=== PATIENT | female | born 1985 | race Caucasian/White ===

== ENCOUNTER 2022-03-04 12:23 | Inpatient (IN) ==
[2022-03-04] MEDS ORDERED: DEXTROSE 50% 50 ML SYRINGE IV PRN (13:45)
[2022-03-04] MEDS ORDERED: OXYTOCIN 30 UNITS/500 ML BAG IV PRN ×2 (13:45)
[2022-03-04] MEDS ORDERED: INSULIN REGULAR 250 UNITS in SODIUM CHLORIDE 0.9% 247.5 ML IV PRN (13:45)
[2022-03-04] MEDS ORDERED: SODIUM CHLORIDE 0.9% 1000ML 1,000 ML IV PRN (13:45)
[2022-03-04] MEDS ORDERED: DEXTROSE 5% 1,000 ML IV PRN (13:45)
[2022-03-04] MEDS ORDERED: miSOPROStoL 50 MCG TAB PO ONE (14:17)
[2022-03-04 14:19] LABS: Hematocrit (blood only) 35.8 % (37-47); Hemoglobin 11.8 g/dL (12.0-16.0); Mean Corpuscular Hemoglobin 29.5 pg (25-34); Mean Corpuscular Volume 89.5 fL (80-100); Mean Platelet Volume 9.9 fL (7.4-10.4); Platelet Count 419 K/uL (130-400); RDW Coefficient of Variation 13.5 % (11.5-14.5); RDW Standard Deviation 44.9 fL (36.4-46.3); White Blood Count 10.81 K/uL (4.8-10.8)
--- NOTE | 2022-03-04 14:24 | Procedure Note ---
Procedure Note Date of Service March 04, 2022 Note monitoring was used to ensure reassuring status. The patient was verbally consented for placement of a santiago for cervical ripening, with discussion of risks, benefits and alternatives. All her questions were answered. Her legs were placed in lithotomy position. A lubricated, gloved hand was used to examine the cervix. A stylet was lubricated and inserted into a santiago catheter to give it stiffness, and the santiago catheter was then advanced along my fingers until it reached the external cervical os. Exam was closed, 80%, high. The santiago was then fed forward off of the stylet, aiming at the os and attempting to press through it. Unfortunately the os did not yield and the santiago bent away to the side. The santiago and stylet were removed from the vagina, re-set and re-lubricated, and a second attempt at placement was made. Unfortunately the exact same outcome occurred. My hand, the santiago and the stylet were removed from the vagina. There was no bleeding or leakage of fluid. The heart tones remained reassuring after this process, which the patient tolerated well. We discussed alternate methods of cervical ripening and agree on cytotec 50mcg orally, which I will order. Coding
--- NOTE | 2022-03-04 14:40 | History & Physical Report ---
Date of Service March 04, 2022 Assessment & Plan (1) Encounter for induction of labor: Plan: Lizzy is a 36 y/o at 39 weeks 1 day coming in for induction of labor. -Started patient on LR at 125ml/hr. -Attempted Santiago balloon however cervix remained closed, please see procedure note for more detail. -Ordered one time dose oral 50mcg Misoprostol for cervical ripening. -Anesthesia consulted for pain management. -Vitals WNL, continue to monitor vitals and FHR/toco. Admission and Anticipated Discharge Date Admission Date: March 04, 2022 History of Present Illness Chief Complaint: IoL Primary Care Provider: Brianna Ramirez PA-C 36 year old 39 weeks 1 day. Here for Induction of Labor. Patient attended OB appointments regularly. Patient taking medications: Celexa, cetirizine, vitamin. Contractions: Denies aside from few mady-bell throughout past few days. Fluid or blood: Denies Movement: Present. Allergies Allergy/AdvReac Type Severity Reaction Status Date / Time penicillin G Allergy Unknown RASH Verified 03/03/22 14:40 Sulfa (Sulfonamide Allergy Unknown MILD Verified 03/03/22 14:40 Antibiotics) SENSITIVITY Home Medications Medication Instructions Recorded Confirmed Type cetirizine 10 mg tablet (Zyrtec) 10 mg PO DAILY PRN 07/29/21 03/04/22 History citalopram 20 mg tablet (Celexa) 20 mg PO DAILY 07/29/21 03/04/22 History prenat.vits,gomez,xae-mehc-ludim 1 tab PO DAILY 07/29/21 03/04/22 History ondansetron HCl 4 mg tablet 4 mg PO Q6H PRN #30 tab 01/13/22 03/04/22 Rx Patient History Surgical History (Updated 07/29/21 @ 08:03 by Ewelina Galaviz) S/P wisdom tooth extraction Family History (Updated 07/29/21 @ 07:47 by Ewelina Galaviz) Mother Dysautonomia Hypertension Father Hypertension Sister Asthma Social History (Updated 07/29/21 @ 07:47 by Ewelina Galaviz) Smoking Status: Former smoker Hx Alcohol Use: No Hx Substance Use: No Preferred Language: Russian Communication Ability: Effective Cow Buyer Required: No Beliefs That Will Affect Care: None marital status: marital status details: Brayan (40) [phone] Current Living Situation: Spouse Current Living Situation Comment: lives with spouse current occupational status: unemployed Other Information That Helps Us Care for You: No Feels Safe at Home: Yes Safety Concerns: Feels Safe At This Time Assistive Devices: Glasses OB History Primigravid IVF . Review of Systems Denies fever, chills, sweats Denies shortness of breath, difficulty breathing, chest pain, palpitations, chest pressure. Denies breast pain. Denies dysuria. Denies headache or changes in vision Physical Exam Physical Exam: General: Pleasant affect. Alert, oriented. No acute distress. Cardiac: Regular rate and rhythm, no murmurs/rubs/gallops. Respiratory: Clear to auscultation bilaterally a/p, no wheezes/rales/rhonchi. No increased work of breathing. Symmetrical chest rise. No respiratory distress. Lower Extremities: No deep calf pain. Results & Data ([facility]) Vital Signs (Past 12 Hours) Vital Signs Temp Pulse Resp BP 03/04/22 13:48 85 128/81 03/04/22 13:29 37.0 C 18 Laboratory Results - Blood type O+ - Antibody screen: Negative - Hgb: 11.8 - Hct: 35.8 - Wbc: 10.81 - Plt: 419 - Rubella Immune - VDRL/RPR: Negative - Gonorrhea: Negative - Chlamydia: Negative - HIV: Negative - HbSAg: Immune - GBS: Negative - Glucose tolerance x 2: 105, 123 Monitoring External Monitor FHR: 150 Accels: Present Decels: Not present. Tocodynamometer Contractions not present. Supervising Physician Co-Signing Physician Notes Resident Physician Supervision Note: I interviewed and examined the patient. Discussed with Dr. Walton and agree with findings and plan as documented in the note. Any exceptions or clarifications are listed here: Patient admitted for IOL of IVF/ICSI c/b AMA, placental lakes. Delayed start of induction due to high census in L&D. On admission, attempted santiago but cervix unripe and would not permit passage of santiago balloon. Therefore, cytotec dosed orally and will reassess cervix in 4 hours. Hoping at that point she may be able to start pitocin, +/- need for santiago balloon depending on dilation. Documented By: Francia Vicente MD, FACOG Resident Activity Tracking Resident Involvement: Resident Care Provided Care Provided: OB Delivery
--- NOTE | 2022-03-04 19:38 | Labor Progress Brief Note ---
Date of Service March 04, 2022 Subjective Contractions Q2min that are uncomfortable but not very painful. Good FM, no LOF or VB. Assessment & Plan (1) Encounter for induction of labor: Plan: Santiago now placed for cervical ripening. [place] too active to add further augmentation; will allow observation until either santiago falls out or contraction pattern settles significantly. Could add pitocin or AROM after those occur. Epidural on request. Admission and Anticipated Discharge Date Admission Date: March 04, 2022 Physical Exam Genitourinary: Cervix unchanged but perhaps softer; might be able to place a santiago through if reattempted? FHT Cat 1 [place] Q2m After discussing limited options available given active toco, patient is interested in attempting santiago placement. Latex santiago lubricated, stylet inserted, and using a sterile gloved hand, santiago guided to cervix. The santiago was fed forward off the stylet and pressed against the cervical os, and this time it was able to pass through. Santiago advanced forward approximately 3 inches, stylet removed, and then 35cc sterile water placed into the balloon. Santiago seated downward against the internal os and secured at the leg with a standard wheeler. No VB or LOF, FHT remain cat 1. Results & Data ([facility]) Vital Signs (Past 12 Hours) Vital Signs Temp Pulse Resp BP 03/04/22 19:17 82 135/82 03/04/22 19:12 98.1 F 20 03/04/22 18:06 86 131/84 03/04/22 17:00 18 03/04/22 13:48 98.6 F 85 18 128/81 03/04/22 13:29 98.6 F 18 Coding Level of Care Code None Diagnoses Encounter for induction of labor Z34.90
[2022-03-05] MEDS: LACTATED RINGER'S 1,000 ML IV PRN ×4 (03:29→12:22)
[2022-03-05] MEDS ORDERED: ONDANSETRON INJ 2 MG/ML 2 ML VIAL IV ONE (05:07)
[2022-03-05] MEDS ORDERED: ONDANSETRON INJ 2 MG/ML 2 ML VIAL ONE (05:09)
--- NOTE | 2022-03-05 06:15 | Labor Progress Brief Note ---
Date of Service March 05, 2022 Subjective Tolerating ctx with breathing. Does not desire epidural yet; wanting to try to go without if possible. Agreeable to AROM. Assessment & Plan (1) Encounter for induction of labor: Plan: Pit, AROM, can have epidural on request. Continue current mgmt. Admission and Anticipated Discharge Date Admission Date: March 04, 2022 Physical Exam Genitourinary: /50/-2 FHT Cat 1 [place] Q2m Pit @ 5 AROM copious clear Results & Data ([facility]) Vital Signs (Past 12 Hours) Vital Signs Temp Pulse Resp BP 03/05/22 06:08 98.2 F 03/05/22 05:38 77 117/77 03/05/22 05:30 20 03/05/22 05:11 20 03/05/22 04:39 73 117/76 03/05/22 04:00 20 03/05/22 03:30 20 03/05/22 03:11 71 105/58 L 03/05/22 03:10 98.1 F 03/04/22 22:42 75 112/71 03/04/22 22:40 98.4 F 03/04/22 22:25 20 03/04/22 20:33 20 03/04/22 19:17 82 135/82 03/04/22 19:12 98.1 F 20 Coding Level of Care Code None Diagnoses Encounter for induction of labor Z34.90
[2022-03-05] MEDS ORDERED: fentaNYL citrate 100 MCG/2 ML VIAL ONE (06:50)
[2022-03-05] MEDS ORDERED: BUPIVACAINE 0.25% 30 ML VIAL ONE ×2 (06:50→10:53)
[2022-03-05] MEDS ORDERED: SODIUM CHLORIDE 0.9% INJ 10 ML VIAL ONE ×2 (06:50→10:53)
[2022-03-05] MEDS ORDERED: ePHEDrine sulfate 50 MG/ML AMP ONE (06:50)
[2022-03-05] MEDS ORDERED: fentaNYL 2MCG/ML ROPIVACAINE 1.25MG/ML 100 ML BAG EPI ONE (06:51)
[2022-03-05] MEDS ORDERED: ONDANSETRON INJ 2 MG/ML 2 ML VIAL IV PRN (07:23)
[2022-03-05] MEDS ORDERED: diphenhydrAMINE 50 MG/ML VIAL IV PRN (07:23)
[2022-03-05] MEDS ORDERED: ePHEDrine sulfate 50 MG/ML AMP IV PRN (07:23)
[2022-03-05] MEDS ORDERED: NALBUPHINE HCL INJ 10 MG/ML AMP IV PRN (07:23)
[2022-03-05] MEDS ORDERED: NALOXONE HCL 0.4 MG/1 ML VIAL/CARP IV PRN (07:23)
[2022-03-05] MEDS ORDERED: NALOXONE HCL 1 MG in SODIUM CHLORIDE 0.9% 1000ML 1,000 ML IV PRN (07:23)
[2022-03-05] MEDS ORDERED: fentaNYL 2MCG/ML ROPIVACAINE 1.25MG/ML 100 ML BAG EPI PRN (07:23)
--- NOTE | 2022-03-05 07:26 | Anesthesiology Consultation ---
Date of Service March 05, 2022 Assessment & Plan Chart Review Chart Review: Patient NOT seen in Pre Admission Testing and Acceptable Risk for Labor Epidural Consults Requested none ASA ASA2 Proposed Anesthesia Anesthesia Type: Labor Epidural and CSE Risk / Benefits Reviewed With: PT / POA / Parent / Guardian, Accepts Plan and Informed Consent Obtained History Height/Weight Height: 5 ft 3 in Weight: 93.44 kg Allergies Allergy/AdvReac Type Severity Reaction Status Date / Time penicillin G Allergy Unknown RASH Verified 03/03/22 14:40 Sulfa (Sulfonamide Allergy Unknown MILD Verified 03/03/22 14:40 Antibiotics) SENSITIVITY Medications Home Medications Medication Instructions Recorded Confirmed Last Taken cetirizine 10 mg tablet (Zyrtec) 10 mg PO DAILY PRN 07/29/21 03/04/22 03/04/22 citalopram 20 mg tablet (Celexa) 20 mg PO DAILY 07/29/21 03/04/22 03/04/22 prenat.vits,gomez,vji-scem-hoaqy 1 tab PO DAILY 07/29/21 03/04/22 03/04/22 ondansetron HCl 4 mg tablet 4 mg PO Q6H PRN #30 tab 01/13/22 03/04/22 03/04/22 Active Medications Generic Name Dose Route Start Last Admin Trade Name Freq PRN Reason Stop Dose Admin Oxytocin 30 units in 500 mls @ 7 mls/hr 03/04/22 13:45 03/05/22 06:31 Pitocin IV 03/06/22 13:44 0.42 units/hr .Q24H PRN 7 mls/hr Labor Induction/Augmentation Titration Protocol 0.42 UNITS/HR Lactated Ringer's 1,000 mls @ 125 mls/hr 03/04/22 13:45 03/05/22 07:24 Lr IV 03/06/22 13:44 999 mls/hr .Q8H PRN Administration L&D Protocol Protocol NPO Date Last Intake of Fluids: 03/05/22 Time Last Intake of Fluids: 06:00 Date Last Intake of Solids: 03/04/22 Time Last Intake of Solids: 19:00 Exercise / Class Metabolic Activity II 4-5 Yardwork/Stairs/Walk up hill Past Family History Family History Mother Dysautonomia Hypertension Father Hypertension Sister Asthma Past Surgical History Surgical History S/P wisdom tooth extraction Past Anesthesia History No Hx of Anesthesia Complications and No Family Hx of Anesthesia Complications History of PONV No Hx of PONV and No Hx of Motion Sickness Social History Smoking Status: Former smoker Hx Alcohol Use: No Hx Substance Use: No Review of Systems no chest pain or sob Physical Exam Vital Signs Last Vital Signs Temp 36.8 C 03/05/22 07:17 Pulse 90 03/05/22 07:22 Resp 20 03/05/22 07:17 BP 123/80 03/05/22 07:19 Pulse Ox 100 03/05/22 07:22 Constitutional + obese ENMT Mouth: no TMJ abnormality Thyromental Distance: > or= 3.5 Finger Breadths Mallampati Class: II Neck normal visual inspection Respiratory normal respiratory effort Auscultation: lungs clear to auscultation bilaterally Cardiovascular Rate/Rhythm: regular rate and regular rhythm Musculoskeletal Spine: normal cervical ROM Neurologic moves all extremities Psychiatric Orientation: alert and oriented x 3 Testing Laboratory Results 03/04/22 14:02
[2022-03-05] MEDS ORDERED: CALCIUM CARBONATE 500 MG CHEWABLE TAB PO PRN (09:40)
[2022-03-05] MEDS ORDERED: Nursing to Pharmacy Communication SCH (10:15)
--- NOTE | 2022-03-05 10:56 | Labor Progress Brief Note ---
Date of Service March 05, 2022 Subjective painful, awaiting rebolus by anesthesia Assessment & Plan (1) Encounter for induction of labor: (2) resulting from in vitro fertilization, antepartum: (3) Supervision of elderly primigravida: Plan: making progress with cx change. fhts categ 1. early decels. anesth here to try to improve her pain mgmt. Admission and Anticipated Discharge Date Admission Date: March 04, 2022 Physical Exam Constitutional: WD/WN, vitals as above Genitourinary: Manual OB Exam: + cervical dilation (7cm per nurse) OB Exam Monitor Tracing: + external FHT monitor used, + external uterine monitor used (q3), + category I, + normal FHT variability and + early decelerations present Results & Data ([facility]) Vital Signs (Past 12 Hours) Vital Signs Temp Pulse Resp BP Pulse Ox 03/05/22 10:53 86 91 03/05/22 10:52 86 98 03/05/22 10:47 87 96 03/05/22 10:42 93 H 97 03/05/22 10:37 100 H 97 03/05/22 10:32 85 95 03/05/22 10:28 90 117/82 93 03/05/22 10:27 86 98 03/05/22 10:22 88 97 03/05/22 10:19 83 93 03/05/22 10:17 102 H 96 03/05/22 10:13 86 113/72 03/05/22 10:12 85 98 03/05/22 10:10 86 93 03/05/22 10:07 83 95 03/05/22 10:02 85 96 03/05/22 09:58 89 112/67 03/05/22 09:57 81 96 03/05/22 09:52 83 98 03/05/22 09:47 89 98 03/05/22 09:44 75 110/65 03/05/22 09:42 83 97 03/05/22 09:37 77 98 03/05/22 09:32 83 97 03/05/22 09:28 75 107/61 03/05/22 09:27 74 98 03/05/22 09:22 73 98 03/05/22 09:17 74 98 03/05/22 09:13 72 114/67 03/05/22 09:12 78 97 03/05/22 09:07 78 98 03/05/22 09:02 80 97 03/05/22 08:59 98.2 F 75 20 121/70 03/05/22 08:57 75 98 03/05/22 08:52 76 98 03/05/22 08:47 70 98 03/05/22 08:44 86 107/65 03/05/22 08:42 82 98 03/05/22 08:37 93 H 99 03/05/22 08:32 84 97 03/05/22 08:28 77 114/72 03/05/22 08:27 84 99 03/05/22 08:22 78 100 03/05/22 08:17 85 97 03/05/22 08:14 78 16 116/71 03/05/22 08:12 86 97 03/05/22 08:07 87 97 03/05/22 08:02 95 H 98 03/05/22 07:58 88 16 112/66 03/05/22 07:57 89 97 03/05/22 07:55 100 H 104/60 03/05/22 07:53 89 20 110/65 03/05/22 07:52 99 H 98 03/05/22 07:51 91 H 104/60 03/05/22 07:50 90 20 108/60 03/05/22 07:47 84 118/70 98 03/05/22 07:42 82 97 03/05/22 07:41 81 118/80 03/05/22 07:37 90 98 03/05/22 07:34 86 127/86 03/05/22 07:32 86 99 03/05/22 07:27 82 98 03/05/22 07:22 90 100 03/05/22 07:19 75 123/80 03/05/22 07:17 98.2 F 82 20 100 03/05/22 07:12 75 99 03/05/22 07:00 24 03/05/22 06:37 74 134/84 03/05/22 06:30 20 03/05/22 06:08 98.4 F 20 03/05/22 06:00 20 03/05/22 05:38 77 117/77 05 05:30 20 03/05/22 05:11 20 03/05/22 04:39 73 117/76 05 04:00 20 05/13/22 03:30 20 03/05/22 03:11 71 105/58 L 03/05/22 03:10 98.1 F 20 Coding Level of Care Code None Diagnoses Encounter for induction of labor Z34.90 resulting from in vitro fertilization, antepartum O09.819 Supervision of elderly primigravida O09.519
--- NOTE | 2022-03-05 11:16 | Labor Progress Brief Note ---
Date of Service March 05, 2022 Subjective more painful, rectal pressure and cx pain Assessment & Plan (1) Encounter for induction of labor: (2) resulting from in vitro fertilization, antepartum: (3) Supervision of elderly primigravida: Plan: anticip 2nd stage soon. anesth may opt with pt to use more pain meds. pt aware could be more time until ready to push. fhts categ 1, early decels. 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 Admission and Anticipated Discharge Date Admission Date: March 04, 2022 Physical Exam Constitutional: WD/WN, vitals as above Genitourinary: Manual OB Exam: + cervical dilation (rim), + cervical effacement 100% and + station + 1 OB Exam Monitor Tracing: + external FHT monitor used, + external uterine monitor used (q2), + category I, + normal FHT variability and + early decelerations present Results & Data ([facility]) Vital Signs (Past 12 Hours) Vital Signs Temp Pulse Resp BP Pulse Ox 03/05/22 11:07 83 100 03/05/22 11:02 110 H 99 03/05/22 11:00 133 H 114/83 03/05/22 10:57 106 H 96 03/05/22 10:53 86 91 03/05/22 10:52 86 98 03/05/22 10:47 87 96 03/05/22 10:42 93 H 97 03/05/22 10:37 100 H 97 03/05/22 10:32 85 95 03/05/22 10:28 90 117/82 93 03/05/22 10:27 86 98 03/05/22 10:22 88 97 03/05/22 10:19 83 93 03/05/22 10:17 102 H 96 03/05/22 10:13 86 113/72 03/05/22 10:12 85 98 03/05/22 10:10 86 93 03/05/22 10:07 83 95 03/05/22 10:02 85 96 03/05/22 09:58 89 112/67 03/05/22 09:57 81 96 03/05/22 09:52 83 98 03/05/22 09:47 89 98 03/05/22 09:44 75 110/65 03/05/22 09:42 83 97 03/05/22 09:37 77 98 03/05/22 09:32 83 97 03/05/22 09:28 75 107/61 03/05/22 09:27 74 98 03/05/22 09:22 73 98 03/05/22 09:17 74 98 03/05/22 09:13 72 114/67 03/05/22 09:12 78 97 03/05/22 09:07 78 98 03/05/22 09:02 80 97 03/05/22 08:59 98.2 F 75 20 121/70 05 08:57 75 98 03/05/22 08:52 76 98 03/05/22 08:47 70 98 03/05/22 08:44 86 107/65 03/05/22 08:42 82 98 03/05/22 08:37 93 H 99 03/05/22 08:32 84 97 03/05/22 08:28 77 114/72 03/05/22 08:27 84 99 03/05/22 08:22 78 100 03/05/22 08:17 85 97 03/05/22 08:14 78 16 116/71 03/05/22 08:12 86 97 03/05/22 08:07 87 97 03/05/22 08:02 95 H 98 03/05/22 07:58 88 16 112/66 03/05/22 07:57 89 97 03/05/22 07:55 100 H 104/60 03/05/22 07:53 89 20 110/65 03/05/22 07:52 99 H 98 03/05/22 07:51 91 H 104/60 03/05/22 07:50 90 20 108/60 03/05/22 07:47 84 118/70 98 03/05/22 07:42 82 97 03/05/22 07:41 81 118/80 05 07:37 90 98 05 07:34 86 127/86 03/05/22 07:32 86 99 03/05/22 07:27 82 98 03/05/22 07:22 90 100 03/05/22 07:19 75 123/80 03/05/22 07:17 98.2 F 82 20 100 03/05/22 07:12 75 99 03/05/22 07:00 24 03/05/22 06:37 74 134/84 05/13/22 06:30 20 03/05/22 06:08 98.4 F 20 03/05/22 06:00 20 03/05/22 05:38 77 117/77 03/05/22 05:30 20 03/05/22 05:11 20 03/05/22 04:39 73 117/76 03/05/22 04:00 20 03/05/22 03:30 20 03/05/22 03:11 71 105/58 L 03/05/22 03:10 98.1 F 20 Coding Level of Care Code None Diagnoses Encounter for induction of labor Z34.90 resulting from in vitro fertilization, antepartum O09.819 Supervision of elderly primigravida O09.519
--- NOTE | 2022-03-05 13:59 | Delivery Summary ---
Vaginal Delivery Summary Date of Service March 05, 2022 Vaginal Delivery Summary and 2nd Degree LAC PREOPERATIVE DIAGNOSIS: 1. Single intrauterine at 39 2/7 wga 2. IVF 3. Advanced maternal age 4. Marginal cord insertion 5. Placental saavedra POSTOPERATIVE DIAGNOSIS: 1. Single intrauterine at 39 2/7 wga 2. IVF 3. Advanced maternal age 4. Marginal cord insertion 5. Placental saavedra 6. Delivered PROCEDURE: 1. Normal spontaneous vaginal delivery. SURGEON: Lady Maciel MD ANESTHESIA: Epidural. ESTIMATED BLOOD LOSS: 300 mL FLUIDS: Continuous LR. URINE OUTPUT: None. COMPLICATIONS: None. CONDITION: Stable. INDICATIONS: 36 y/o G1 at 39 2/7 wga presented for IOL one day ago due to cord insertion and placental saavedra per [facility] recommendations. complicated by above. Induction started with cytotec and she then underwent santiago bulb placement once cervix ripened. Following santiago bulb expulsion, she was started on pitocin and underwent artificial rupture of membranes. She received an epidural and augmentation continued until she reached complete and desired to push. FINDINGS: A viable male infant, weight pending with Apgars of 7 and 8 at 1 and 5 minutes respectively. SPECIMEN: Cord blood, placenta OPERATIVE REPORT: The patient progressed to 10 cm, 100% effaced and +2 station, pushed over intact perineum with anesthesia to deliver a viable male infant, weight and Apgars as above. Head of delivered in direct OA position. No nuchal cord was present. Body and shoulders were delivered without difficulty. was delivered to maternal abdomen and nursing staff. Delayed cord clamping was performed for 60 seconds. Cord was clamped and cut. Cord blood was obtained. Placenta delivered spontaneously intact with 3-vessel cord. IV oxytocin and fundal massage were given for excellent hemostasis. Vagina, cervix, perineum, and placenta were inspected. A second degree laceration was noted and repaired in the usual fashion using 3-0 Vicryl. Sponge and needle counts correct x2. No sponges were left behind. Mother and stable in immediate period. [facility] Vaginal Delivery Charge Vaginal Delivery Codes: 96263 global code for the antepartum, delivery, and post- Delivery Type Details: and 2nd Degree LAC
[2022-03-05] MEDS ORDERED: OXYTOCIN 20 UNITS in LACTATED RINGER'S 1,000 ML IV SCH (14:07)
[2022-03-05] MEDS ORDERED: ACETAMINOPHEN 325 MG TAB PO PRN (14:07)
[2022-03-05] MEDS ORDERED: HYDROCORTISONE ACETATE 25 MG SUPP PR PRN (14:07)
[2022-03-05] MEDS ORDERED: DIPHTHERIA/TETANUS/PERTUSSIS 0.5 ML SYR/VIAL IM ONE (14:07)
[2022-03-05] MEDS ORDERED: oxyCODONE/ACETAMINOPHEN 5mg/325mg TAB PO PRN (14:07)
[2022-03-05] MEDS ORDERED: OXYTOCIN 30 UNITS/500 ML BAG IV PRN (14:07)
[2022-03-05] MEDS ORDERED: BENZOCAINE 20% AER SPR 82.5 GM CAN EXT PRN (14:07)
--- NOTE | 2022-03-05 14:43 | Anesthesia Procedure Note ---
Date of Service March 05, 2022 Anesthesia Post Epidural Note Vital Signs Vital Signs: Temp Pulse Resp BP Pulse Ox 36.8 C 97 H 20 129/72 98 03/05/22 14:28 03/05/22 14:28 03/05/22 14:28 03/05/22 14:28 03/05/22 13:42 Pain Intensity Abdomen: Pain Intensity: 0 Notes Mental Status: alert / awake / arousable and participated in evaluation Nausea / Vomiting: adequately controlled Pain: adequately controlled Airway Patency, RR, SpO2: stable & adequate BP & HR: stable & adequate Hydration State: stable & adequate Neuraxial Anesthesia: was administered and sensory block is resolving Anesthetic Complications: no major complications apparent and Pt Satisfied with anesthetic care Epidural: Removed without complications and With tip intact
[2022-03-05] MEDS: IBUPROFEN 600 MG TAB PO PRN (19:39)
[2022-03-05] MEDS: CETIRIZINE HCL 10 MG TABLET PO PRN (19:40)
[2022-03-05] MEDS: DOCUSATE SODIUM 100 MG CAP PO SCH (21:22)
--- NOTE | 2022-03-06 06:38 | Obstetrical Progress Note ---
Date of Service <Fer Walton DO - Last Filed: 03/06/22 07:54> March 06, 2022 Assessment & Plan <Fer Walton DO - Last Filed: 03/06/22 07:54> (1) Encounter for care and examination after delivery: 36 yo post day 1 from vaginal delivery, doing well. -Continue routine post care. -vital signs reviewed and WNL. (Tmax 37.0) -Blood type O+, GBS -, Rubella Immune -Encourage ambulation, monitor and control pain with Motrin, tylenol PRN, resume regular diet, monitor lochia. -encourage breast feeding. <Davina Martins MD, FACOG - Last Filed: 03/06/22 08:03> (1) Encounter for care and examination after delivery: Day #:: 1 Subjective <Fer Walton DO - Last Filed: 03/06/22 07:54> Ambulation: ambulating normally Voiding: no voiding problems Passing Gas:: Yes Diet Tolerance:: regular diet Lochia:: Small Feeding Type:: breast feeding Current Pain Level(1-10): 0 Review of Systems Denies fever, chills, sweats Denies shortness of breath, difficulty breathing, chest pain, palpitations, chest pressure. Denies breast pain. Denies dysuria. Denies headache or changes in vision Physical Exam <Fer aWlton DO - Last Filed: 03/06/22 07:54> General: Alert, oriented. No acute distress. Cardiac: Regular rate and rhythm, no murmurs/rubs/gallops. Respiratory: Clear to auscultation bilaterally a/p, no wheezes/rales/rhonchi. No increased work of breathing. Symmetrical chest rise. No respiratory distress. Abdomen: Soft, nontender, nondistended. Bowel sounds present. Uterus: Uterine fundus firm, palpable 2 cm below umbilicus. Lower Extremities: No lower extremity edema or swelling. No deep calf pain. Chris's negative bilaterally Results & Data ([facility]) <Fer Walton DO - Last Filed: 03/06/22 07:54> Vital Signs (Past 12 Hours) Vital Signs Temp Pulse Resp BP Pulse Ox 03/06/22 03:05 36.7 C 83 16 114/79 98 03/05/22 23:50 36.7 C 78 18 103/70 98 03/05/22 19:40 37.0 C 91 H 18 112/69 96 <Davina Martins MD, FACOG - Last Filed: 03/06/22 08:03> Co-Signing Physician Notes Resident Physician Supervision Note: I was present with Dr. Walton during the history and exam. I discussed the case with the resident and agree with the findings and plan as documented in the note. Any exceptions or clarifications are listed here: stable, routine care. ff 2 down nt, breast feeding. rhpos, ri. Documented By: Davina Martins MD, FACOG Resident Activity Tracking <Fer Walton DO - Last Filed: 03/06/22 07:54> Resident Involvement: Resident Care Provided Care Provided: OB Delivery
[2022-03-06] MEDS: IBUPROFEN 600 MG TAB PO PRN ×3 (07:06→19:54)
[2022-03-06] MEDS: CITALOPRAM 20 MG TAB PO SCH (07:54)
[2022-03-06] MEDS: PRENATAL VITAMIN 1 TAB PO SCH (07:54)
[2022-03-06] MEDS: DOCUSATE SODIUM 100 MG CAP PO SCH ×2 (07:54→19:54)
[2022-03-06] MEDS: CETIRIZINE HCL 10 MG TABLET PO PRN (08:08)
[2022-03-07] MEDS: IBUPROFEN 600 MG TAB PO PRN (05:08)
--- NOTE | 2022-03-07 07:28 | Obstetrical Progress Note ---
Date of Service March 07, 2022 Assessment & Plan (1) Encounter for care and examination after delivery: 36 yo PP2 from , doing well -Meeting all pp milestones -O+/rubella immune/ -f/u 6 weeks for appt, stable for d/c home Subjective Ambulation: ambulating normally Voiding: no voiding problems Passing Gas:: Yes Diet Tolerance:: regular diet Lochia:: Small Feeding Type:: breast feeding Pain well managed with medication Review of Systems Denies fevers, chills, n/v, CARMONA, CP, SOB Physical Exam Constitutional WD/WN, vitals as above no acute distress Respiratory normal respiratory effort, lungs clear to auscultation Cardiovascular RRR, no murmur, no edema Gastrointestinal (Abdomen) Percussion/Palpation: abdomen soft; abdomen nontender fundus firm at umbilicus and NT Musculoskeletal BLE symmetric, nonerythematous, nontender Results & Data ([facility]) Vital Signs (Past 12 Hours) Vital Signs Temp Pulse Resp BP Pulse Ox 03/06/22 23:05 98.6 F 88 16 106/68 97
[2022-03-07] MEDS: PRENATAL VITAMIN 1 TAB PO SCH (08:17)
[2022-03-07] MEDS: DOCUSATE SODIUM 100 MG CAP PO SCH (08:17)
[2022-03-07] MEDS: CITALOPRAM 20 MG TAB PO SCH (09:03)
[2022-03-07] MEDS: CETIRIZINE HCL 10 MG TABLET PO PRN (09:04)
== END 2022-03-07 10:20 | disposition home or self-care (01) | DRG 807 ==
LOC: 4S1 13:13 → 4E2 03-05 16:28

== ENCOUNTER 2025-03-11 04:28 | Inpatient (IN) ==
--- NOTE | 2025-03-11 04:40 | Communication Note ---
Date of Service: March 11, 2025 Grossly ruptured for clear fluid. Brief exam of patient's pad while she was getting dressed in restroom upon her arrival confirms this. I was en route to O R with another patient so decision to admit was made and full exam / FHT / [place] pending at this time.
[2025-03-11] MEDS: LACTATED RINGER'S 1,000 ML IV PRN (04:55)
--- NOTE | 2025-03-11 05:21 | History & Physical Report ---
Date of Service March 11, 2025 Assessment & Plan (1) Normal labor: Plan: Ruptured and laboring. Admit, epidural on request, exp mgmt. Admission and Anticipated Discharge Date Admission Date: March 11, 2025 History of Present Illness Primary Care Provider: Brianna Ramirez PA-C 39yo at 38w2d with IVF/ICSI , presents with SROM for clear fluid and contractions. No VB, good FM. Prior of a [id number] in 2021. Allergies Allergy/AdvReac Type Severity Reaction Status Date / Time nickel Allergy Mild PRURITIS Verified 03/05/25 14:13 penicillin G Allergy Unknown RASH Verified 03/05/25 14:13 Sulfa (Sulfonamide Allergy Unknown MILD Verified 03/05/25 14:13 Antibiotics) SENSITIVITY Home Medications Medication Instructions Recorded Confirmed Type cetirizine 10 mg tablet (Zyrtec) 10 mg PO QAM 07/29/21 03/11/25 History citalopram 20 mg tablet (Celexa) 20 mg PO QAM 07/29/21 03/11/25 History prenat.vits,gomez,[id number] 1 tab PO QAM 07/29/21 03/11/25 History cholecalciferol (vitamin D3) 50 100 mcg PO QAM 05/25/22 03/11/25 History mcg (2,000 unit) capsule fluticasone propionate [Flonase 1 applic intranasal BID 08/17/24 03/11/25 History Allergy Relief] ondansetron HCl 4 mg tablet 4 mg PO Q6H PRN nausea and 01/10/25 03/11/25 Rx vomiting #20 tabs Past Med/Surg History Problem List (Updated 03/11/25 @ 05:20 by Francia Vicente MD) Normal labor Supervision of elderly primigravida resulting from in vitro fertilization, antepartum Encounter for anatomic survey Medical History Cholelithiasis Placental abnormality Anxiety Vertigo Optic neuritis Headache Cardiac murmur Migraines (10/29/12) Depression (10/29/12) GERD (gastroesophageal reflux disease) Surgical History S/P cholecystectomy (06/09/22) History of surgery S/P wisdom tooth extraction Family History Mother Dysautonomia Hypertension Father Hypertension Sister Asthma Father Hypertension Grandfather (Maternal) Cancer Prostate cancer Grandmother (Paternal) Heart disease Social History Smoking Status: Never smoker Tobacco Type: Cigarettes packs per day: 1; Second Hand Exposure: No; Do You Dip or Chew Tobacco: No; Hx Alcohol Use: Yes (rarely) Alcohol type: beer Hx Substance Use: No Preferred Language: French Communication Ability: Effective Visual Impairment: No 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 Beliefs That Will Affect Care: None marital status: marital status details: Brayan (44) [phone] Current Living Situation: Spouse and Boarding Home Current Living Situation Comment: lives with spouse and son current occupational status: unemployed current occupation: Homemaker How many Children do You have: 1 Other Information That Helps Us Care for You: No Feels Safe at Home: Yes Safety Concerns: Feels Safe At This Time Diet: regular during the past year weight has: decreased > 10 lbs Assistive Devices: None Physical Exam Constitutional: WD/WN, vitals as above + in distress Eyes: PERRL, conjunctivae normal, anicteric sclerae ENMT: external ear and nose normal, oropharynx normal Neck: supple Respiratory: normal respiratory effort and able to speak in complete sentences; no respiratory distress Cardiovascular: Rate/Rhythm: regular rate and regular rhythm Extremities: + pedal edema Gastrointestinal (Abdomen): Gravid / AGA, nontender Musculoskeletal: no cyanosis or clubbing, extremities motor strength 5/5 Skin: no rashes, warm and dry Neurologic: patellar DTR's 2+ bilat, sensation intact Psychiatric: A+Ox3, euthymic affect Genitourinary: Speculum/Bimanual Exam: no vaginal lesions, no vaginal bleeding and uterus nontender OB Exam Abdomen: + vertex, + estimated weight (7) and + regular contractions (Q2) Manual OB Exam: + cervical dilation (7), + cervical effacement 90%, + station (Exam is per 2x RN check while I was operating on another patient) -2 and + amniotic fluid clear OB Exam Monitor Tracing: + external FHT monitor used, + external uterine monitor used and + category I Lymphatic: no cervical or axillary lymphadenopathy Results & Data Results & Data Vital Signs (Past 12 Hours) Vital Signs Temp Pulse Resp BP 03/11/25 04:45 99.0 F 18 03/11/25 04:40 81 135/84 PG Care Time/CCT Total # of Minutes Spent Total Time Spent with Patient: Total time spent is greater than 50% in coordination of care (as documented) at patient's floor/unit and/or counseling patient: Coding Level of Care Code None Diagnoses Normal labor O80; Z37.9
[2025-03-11 05:22] LABS: Hematocrit (blood only) 35.7 % (37.0-47.0); Hemoglobin 11.9 g/dl (12.0-16.0); Mean Corpuscular Hemoglobin 27.9 pg (25.0-34.0); Mean Corpuscular Hgb Conc 33.3 g/dL (32.0-36.0); Mean Corpuscular Volume 83.8 fL (80.0-100.0); Mean Platelet Volume 9.8 fL (9.4-12.4); Platelet Count 334 K/uL (130-400); RDW Coefficient of Variation 14.2 % (11.5-14.5); RDW Standard Deviation 42.8 fL (36.4-46.3); Red Blood Count 4.26 M/uL (4.20-5.40); White Blood Count 10.16 K/ul (4.8-10.8)
[2025-03-11] MEDS: fentANYL 2 MCG/ML BUPIVacaine 0.125%-NSS 100ML BAG ONE (05:48)
[2025-03-11] MEDS ORDERED: NALOXONE HCL 1 MG in SODIUM CHLORIDE 0.9% 1,000 ML IV PRN (05:49)
[2025-03-11] MEDS ORDERED: diphenhydrAMINE 50 MG/ML VIAL IV PRN (05:49)
[2025-03-11] MEDS ORDERED: ePHEDrine sulfate 50 MG/ML AMP IV PRN (05:49)
[2025-03-11] MEDS ORDERED: SODIUM CHLORIDE 0.9% PF INJ 10 ML VIAL EPI PRN (05:49)
[2025-03-11] MEDS: SODIUM CHLORIDE 0.9% PF INJ 10 ML VIAL ONE (05:49)
[2025-03-11] MEDS: fentaNYL citrate PF 100 MCG/2 ML VIAL ONE (05:49)
[2025-03-11] MEDS: LIDOCAINE 2%/EPINEPHRINE 1:200,000 20 ML PF ONE (05:49)
[2025-03-11] MEDS ORDERED: LIDOCAINE 2% MPF LOCAL 5 ML VIAL EPI PRN (05:49)
[2025-03-11] MEDS ORDERED: NALOXONE HCL 0.4 MG/1 ML VIAL/CARP IV PRN (05:49)
[2025-03-11] MEDS: BUPIVACAINE 0.25% PF 30 ML VIAL ONE (05:49)
[2025-03-11] MEDS ORDERED: ROPIVACAINE 0.5% PF 5 MG/ML 20 ML VIAL EPI PRN (05:49)
[2025-03-11] MEDS ORDERED: fentaNYL citrate PF 100 MCG/2 ML VIAL EPI PRN (05:49)
[2025-03-11] MEDS ORDERED: NALBUPHINE HCL INJ 10 MG/ML AMP IV PRN (05:49)
--- NOTE | 2025-03-11 05:49 | Anesthesiology Consultation ---
Date of Service March 11, 2025 Assessment & Plan (1) Encounter for pre-operative examination: Chart Review Chart Review: Patient NOT seen in Pre Admission Testing and Acceptable Risk for Labor Epidural Consults Requested none History Height/Weight Height: 5 ft 4 in Weight: 96.615 kg Allergies Allergy/AdvReac Type Severity Reaction Status Date / Time nickel Allergy Mild PRURITIS Verified 03/05/25 14:13 penicillin G Allergy Unknown RASH Verified 03/05/25 14:13 Sulfa (Sulfonamide Allergy Unknown MILD Verified 03/05/25 14:13 Antibiotics) SENSITIVITY Medications Home Medications Medication Instructions Recorded Confirmed Last Taken cetirizine 10 mg tablet (Zyrtec) 10 mg PO QAM 07/29/21 03/11/25 03/04/22 citalopram 20 mg tablet (Celexa) 20 mg PO QAM 07/29/21 03/11/25 03/10/25 prenat.vits,gomez,ajx-shez-xyihm 1 tab PO QAM 07/29/21 03/11/25 03/10/25 cholecalciferol (vitamin D3) 50 100 mcg PO QAM 05/25/22 03/11/25 03/09/25 mcg (2,000 unit) capsule fluticasone propionate [Flonase 1 applic intranasal BID 08/17/24 03/11/25 03/11/25 Allergy Relief] ondansetron HCl 4 mg tablet 4 mg PO Q6H PRN nausea and 01/10/25 03/11/25 03/11/25 vomiting #20 tabs Active Medications Generic Name Dose Route Start Last Admin Trade Name Freq PRN Reason Stop Dose Admin Lactated Ringer's 1,000 mls @ 125 mls/hr 03/11/25 04:39 03/11/25 04:55 Lr IV 03/13/25 04:38 999 mls/hr .Q8H PRN Administration L&D Protocol Protocol Past Medical History Medical History Cholelithiasis Placental abnormality Anxiety Vertigo Optic neuritis Headache Cardiac murmur Was told once she had slight murmur, no cardio f/u No murmur noted by surgeon on 05/25/22 Migraines (10/29/12) VERY RARELY Depression (10/29/12) GERD (gastroesophageal reflux disease) Past Family History Family History Mother Dysautonomia Hypertension Father Hypertension Sister Asthma Father Hypertension Grandfather (Maternal) Cancer skin Prostate cancer Grandmother (Paternal) Heart disease Past Surgical History Surgical History S/P cholecystectomy (06/09/22) Robotic Assisted Laparoscopic Cholecystectomy(Not Applicable) - German Hernandez DO, FACS History of surgery Egg retrieval S/P wisdom tooth extraction Social History Smoking Status: Never smoker Do You Dip or Chew Tobacco: No Hx Alcohol Use: Yes (rarely) Alcohol type: beer Hx Substance Use: No substance use type: marijuana Physical Exam Vital Signs Last Vital Signs Temp 99.0 F 03/11/25 04:45 Pulse 83 03/11/25 05:47 Resp 18 03/11/25 04:45 BP 133/79 03/11/25 05:47 Pulse Ox 100 03/11/25 05:45 Testing Laboratory Results 03/11/25 05:06
[2025-03-11] MEDS: ePHEDrine sulfate 50 MG/ML AMP ONE (06:29)
[2025-03-11] MEDS: ONDANSETRON INJ 2 MG/ML 2 ML VIAL IV PRN (07:05)
[2025-03-11] MEDS: fentANYL 2 MCG/ML BUPIVacaine 0.125%-NSS 100ML BAG EPI PRN (10:03)
[2025-03-11] MEDS: BUPIVACAINE 0.25% PF 30 ML VIAL EPI PRN (11:49)
--- NOTE | 2025-03-11 11:51 | Anesthesia Procedure Note ---
Date of Service March 11, 2025 Anesthesia Epidural Re-Dose Vital Signs Temp Pulse Resp BP Pulse Ox 37.2 C 87 18 107/65 100 03/11/25 04:45 03/11/25 11:46 03/11/25 06:50 03/11/25 11:38 03/11/25 11:46 Notes Pain Intensity: 0 Dilatation (cm): 9.0 Effacement (%): 95 Called by nursing to evaluate epidural as the patient is having increased pain. The epidural was re-dosed with the following medications (all medications via epidural route) after negative aspiration of the epidural catheter for CSF/HEME. 0.2 Ropivacaine ml via epidural After Epidural Re-Dose Mental Status: alert / awake / arousable and participated in evaluation Pain: improving with treatment Airway Patency, RR, SpO2: stable & adequate BP & HR: stable & adequate Additional Notes: Patient reported pain. She is making progress and is currently 9 cm. She does have a T10-T12 level on exam with ice. Redosed with 6 cc of 0.25% bupi. HDS. Pain improved.
[2025-03-11] MEDS: OXYTOCIN 30 UNITS/NSS 30 UNITS/500 ML BAG IV PRN (12:44)
[2025-03-11] MEDS: LIDOCAINE 1% LOCAL 20 ML VIAL INFIL PRN (12:55)
[2025-03-11] MEDS ORDERED: bisacodyL 10 MG SUPP PR PRN (13:15)
[2025-03-11] MEDS ORDERED: OXYTOCIN 30 UNITS/NSS 30 UNITS/500 ML BAG IV PRN (13:15)
[2025-03-11] MEDS ORDERED: oxyCODONE/ACETAMINOPHEN 5mg/325mg TAB PO PRN (13:15)
[2025-03-11] MEDS ORDERED: HYDROCORTISONE ACETATE 25 MG SUPP PR PRN (13:15)
--- NOTE | 2025-03-11 13:19 | Delivery Summary ---
Vaginal Delivery Summary Date of Service March 11, 2025 Vaginal Delivery Summary and 1st Degree LAC Patient is a 39-year-old 2 para 1-0-0-1 female who presented with regular onset of contractions and rupture of membranes. She received effective epidural analgesia. She progressed to full dilation with the urge to push. She pushed effectively over intact perineum for delivery of a viable male infant. After the head was delivered the right hand and shoulder were then delivered. The rest of the delivered with ease. He was placed on mother's abdomen for further attention and drying. He was slow to respond, and was taken to the baby admitted further evaluation. Cord had been clamped and cut prior to this. After cord blood was obtained the placenta was then expressed intact with a three-vessel cord. bleeding was controlled with dilute Pitocin and fundal massage. A first-degree vaginal laceration was bleeding therefore repaired with 3-0 chromic in usual fashion. The bladder was catheterized for 100 cc of urine. QBL is 508 mL. Mother and infant are doing well after delivery[place] [facility] [place] Delivery Type Details: and 1st Degree LAC
[2025-03-11] MEDS: BUPIVACAINE 0.25% PF 30 ML VIAL EPI STA (13:46)
[2025-03-11] MEDS: LIDOCAINE 2%/EPINEPHRINE 1:200,000 20 ML PF EPI STA (13:46)
[2025-03-11] MEDS: fentaNYL citrate PF 100 MCG/2 ML VIAL EPI STA (13:46)
[2025-03-11] MEDS: SODIUM CHLORIDE 0.9% PF INJ 10 ML VIAL EPI STA (13:47)
--- NOTE | 2025-03-11 15:07 | Anesthesia Procedure Note ---
Date of Service March 11, 2025 Anesthesia Post Epidural Note Vital Signs Vital Signs: Temp Pulse Resp BP Pulse Ox 37.2 C 99 H 18 115/66 96 03/11/25 04:45 03/11/25 15:04 03/11/25 06:50 03/11/25 15:04 03/11/25 12:26 Pain Intensity Bilateral Lower Abdomen: Pain Intensity: 0 Notes Mental Status: alert / awake / arousable and participated in evaluation Nausea / Vomiting: adequately controlled Pain: adequately controlled Airway Patency, RR, SpO2: stable & adequate BP & HR: stable & adequate Hydration State: stable & adequate Neuraxial Anesthesia: was administered and sensory block is resolving Anesthetic Complications: no major complications apparent Epidural: Removed without complications and With tip intact
[2025-03-11] MEDS: BENZOCAINE 20% SPRY 85 APPLN/85 GM CAN EXT PRN (17:01)
[2025-03-11] MEDS: DIPHTHER/TETAN/PERTUS Vaccine (Tdap, Adol/Adult) 0.5mL IM ONE (17:02)
[2025-03-11] MEDS: IBUPROFEN 600 MG TAB PO PRN (19:33)
[2025-03-11] MEDS: DOCUSATE SODIUM 100 MG CAP PO SCH (20:43)
[2025-03-12] MEDS: ACETAMINOPHEN 325 MG TAB PO PRN (03:47)
[2025-03-12 06:38] LABS: Hematocrit (blood only) 31.6 % (37.0-47.0); Hemoglobin 10.3 g/dl (12.0-16.0); Mean Corpuscular Hemoglobin 27.9 pg (25.0-34.0); Mean Corpuscular Hgb Conc 32.6 g/dL (32.0-36.0); Mean Corpuscular Volume 85.6 fL (80.0-100.0); Mean Platelet Volume 9.9 fL (9.4-12.4); Platelet Count 300 K/uL (130-400); RDW Coefficient of Variation 14.4 % (11.5-14.5); RDW Standard Deviation 44.2 fL (36.4-46.3); Red Blood Count 3.69 M/uL (4.20-5.40); White Blood Count 13.82 K/ul (4.8-10.8)
--- NOTE | 2025-03-12 08:27 | Obstetrical Progress Note ---
Date of Service March 12, 2025 Assessment & Plan (1) Encounter for care and examination after delivery: satisfactory exam would like to be discharged today if baby discharged follow up in 6 weeks Subjective Ambulation: ambulating normally Voiding: no voiding problems Passing Gas:: Yes Diet Tolerance:: regular diet Lochia:: Small Feeding Type:: breast feeding no concerns this morning Review of Systems All systems reviewed & are unremarkable except as noted in HPI & below Physical Exam Constitutional WD/WN, vitals as above Psychiatric A+Ox3, euthymic affect Genitourinary OB Exam Abdomen: + fundal height Fundus: + firm and + relation to umbilicus (at U) Results & Data Vital Signs (Past 12 Hours) Vital Signs Temp Pulse Resp BP Pulse Ox O2 Del Method 03/12/25 03:45 97.9 F 74 18 115/80 99 Room Air 03/12/25 00:05 97.5 F L 78 18 116/75 97 Room Air
[2025-03-12] MEDS: PRENATAL VITAMIN 1 TAB PO SCH (09:50)
[2025-03-12] MEDS: CITALOPRAM 20 MG TAB PO SCH (10:02)
[2025-03-12] MEDS: CETIRIZINE HCL 10 MG TABLET PO SCH (10:02)
[2025-03-12 11:37] VITALS: RESP 20; O2SAT 98
[2025-03-12 14:27] VITALS: BP 107/74; PULSE 81; TEMP 98.1
[2025-03-12] MEDS ORDERED: bisacodyL 5 MG TABEC PO SCH (20:00)
== END 2025-03-12 15:28 | disposition home or self-care (01) | DRG 807 ==
LOC: OPB 04:28 → 4S1 04:30 → 4E2 16:33